=== PATIENT | female | born 1980 | race Caucasian/White ===

== ENCOUNTER 2016-09-28 06:29 | Day surgery (SDC) | payer OTHER, SELFPAY ==
[~2016-09-28 06:29] MED LIST: Lactated Ringers 1,000 ML IV SCH; Lidocaine 1%/Sod Bicarbonate in NS 8.4% 1 ML Syringe IV PRN; Sodium Chloride 0.9% 10 ML Syringe FLUSH PRN
[2016-09-28] MEDS ORDERED: Scopolamine 1.5 MG Transdermal Patch TOP ONE (07:00)
--- NOTE | 2016-09-28 07:08 | PCM.PREANE ---
Preanesthetic Assessment - Anesthesia/Transfusion/Family Hx Anesthesia History: No Prior Anesthesia (nausea) Family History of Anesthesia Reaction: No Transfusion History: No Prior Transfusion(s) - Review of Systems General: Malaise Pulmonary: No Symptoms Cardiovascular: No Symptoms Gastrointestinal: Abdominal pain, Nausea Neurological: No Symptoms Other: Reports: Easy Bleeding, Easy Bruising, Anxiety - Physical Assessment NPO Status Date: 09/27/16 NPO Status Time: 21:30 Pulse: 105 O2 Sat by Pulse Oximetry: 100 Respiratory Rate: 16 Blood Pressure: 128/87 Temperature: 37.4 C Vital Signs: Last Vital Signs Temp 37.4 C 09/28/16 06:30 Pulse 105 H 09/28/16 06:30 Resp 16 09/28/16 06:30 BP 128/87 09/28/16 06:30 Pulse Ox 100 09/28/16 06:30 Height: 1.6 m Weight: 54.431 kg ASA Class: 2 Mental Status: Alert & Oriented x3 Airway Class: Mallampati = 1 Dentition: Reports: Normal Dentition Thyro-Mental Finger Breadths: 3 Mouth Opening Finger Breadths: 3 ROM/Head Extension: Full Lungs: Clear to auscultation, Normal respiratory effort Cardiovascular: Regular Rate, Regular Rhythm - Lab Values: Laboratory Last Values WBC 6.78 K/mm3 (3.98-10.04) 09/26/16 15:38 RBC 4.68 M/mm3 (3.98-5.22) 09/26/16 15:38 Hgb 13.8 gm/L (11.2-15.7) 09/26/16 15:38 Hct 42.3 % (34.1-44.9) 09/26/16 15:38 MCV 90.4 fl (79.4-94.8) 09/26/16 15:38 MCH 29.5 pg (25.6-32.2) 09/26/16 15:38 MCHC 32.6 g/dl (32.2-35.5) 09/26/16 15:38 RDW Std Deviation 45.4 fL (36.4-46.3) 09/26/16 15:38 Plt Count 239 K/mm3 (182-369) 09/26/16 15:38 MPV 10.6 fl (9.4-12.3) 09/26/16 15:38 Neut % (Auto) 60.4 % (34.0-71.1) 09/26/16 15:38 Lymph % (Auto) 28.5 % (19.3-51.7) 09/26/16 15:38 [place] % (Auto) 8.3 % (4.7-12.5) 09/26/16 15:38 Eos % (Auto) 1.8 (0.7-5.8) 09/26/16 15:38 Baso % (Auto) 1.0 % (0.1-1.2) 09/26/16 15:38 Neut # (Auto) 4.10 K/mm3 (1.56-6.13) 09/26/16 15:38 Lymph # (Auto) 1.93 K/mm3 (1.18-3.74) 09/26/16 15:38 [place] # (Auto) 0.56 K/mm3 (0.24-0.36) H 09/26/16 15:38 Eos # (Auto) 0.12 K/mm3 (0.04-0.36) 09/26/16 15:38 Baso # (Auto) 0.07 K/mm3 (0.01-0.08) 09/26/16 15:38 Creatinine 0.9 mg/dL (0.55-1.02) 09/26/16 15:38 Est Cr Clr Drug Dosing 72.17 mL/min 09/26/16 15:38 Estimated GFR (MDRD) > 60 mL/min (>60) 09/26/16 15:38 Urine Color Yellow (Yellow) 09/26/16 15:38 Urine Appearance Slt cloudy (Clear) H 09/26/16 15:38 Urine pH 8.0 (5.0-8.0) 09/26/16 15:38 Ur Specific [place] 1.020 (1.005-1.030) 09/26/16 15:38 Urine Protein Trace (Negative) H 09/26/16 15:38 Urine Glucose (UA) Negative (Negative) 09/26/16 15:38 Urine Ketones Negative (Negative) 09/26/16 15:38 Urine Occult Blood Negative (Negative) 09/26/16 15:38 Urine Nitrite Negative (Negative) 09/26/16 15:38 Urine Bilirubin Negative (Negative) 09/26/16 15:38 Urine Urobilinogen 0.2 (0.2-1.0) 09/26/16 15:38 Ur Leukocyte Esterase Negative (Negative) 09/26/16 15:38 Urine HCG, Qual Negative (NEGATIVE) 09/26/16 15:38 - Allergies Allergies/Adverse Reactions: Allergies Allergy/AdvReac Type Severity Reaction Status Date / Time azithromycin Allergy rash, Verified 09/27/16 13:38 [From Zithromax [place]] diarrhea bupropion [From Wellbutrin] Allergy Headache Verified 09/27/16 13:38 gluten Allergy Nausea and Verified 09/27/16 13:38 Vomiting sunflower oil Allergy Stomach Verified 09/27/16 13:38 Upset Latex Allergy Rash Uncoded 09/27/16 13:38 - Anesthesia Plan Pre-Op Medication Ordered: None - Acknowledgements Anesthesia Type Planned: General Anesthesia Pt an Appropriate Candidate for the Planned Anesthesia: Yes Alternatives and Risks of Anesthesia Discussed w Pt/Guardian: Yes Pt/Guardian Understands and Agrees with Anesthesia Plan: Yes PreAnesthesia Questionnaire - Past Health History Medical/Surgical History: Denies Medical/Surgical History HEENT History: Reports: Allergic rhinitis, Sinusitis Cardiovascular History: Reports: None Respiratory History: Reports: Bronchitis, recurrent, Other (see below) Other Respiratory History: Breathing issues Gastrointestinal History: Reports: Chronic constipation, GERD, Inflammatory bowel disease, Other (see below) Other Gastrointestinal History: abdominal pain, nausea, vomiting, abdominal pain Genitourinary History: Reports: Other (see below) Other Genitourinary History: dysuria WRAPPER STRIPPER History: Reports: Other (see below) Other OB/BYN History: irregular menses, kash vaginits, amenorrhea, pelvic pain Musculoskeletal History: Reports: Back pain, chronic, Neck pain, chronic, Other (see below) Other Musculoskeletal History: cerviclagia, quadriceps tendon rupture Neurological History: Reports: Headaches, chronic, Vertigo, Other (see below) Other Neuro History: dizziness Psychiatric History: Reports: Anxiety, Depression, Other (see below) Other Psychiatric History: fatigue Endocrine/Metabolic History: Reports: None Hematologic History: Reports: Anemia, Iron deficiency Immunologic History: Reports: None Oncologic (Cancer) History: Reports: None Dermatologic History: Reports: Other (see below) Other Dermatologic History: rash - Past Surgical History Head Surgeries/Procedures: Reports: None - SUBSTANCE USE Smoking Status *Q: Never Smoker Second Hand Smoke Exposure: No Days Per Week of Alcohol Use: 0 Number of Drinks Per Day: 0 Total Drinks Per Week: 0 Recreational Drug Use History: No - HOME MEDS Home Medications: Home Meds Albuterol Sulfate [Proair Hfa] 2 puff IH Q4H PRN 01/29/16 [History] Cyclobenzaprine [Flexeril] 10 mg PO DAILY PRN 01/29/16 [History] Diclofenac Sodium [Voltaren] 75 mg PO ONETIME PRN 01/29/16 [History] Esomeprazole Magnesium [Nexium] 40 mg PO DAILY 01/29/16 [History] Misoprostol 200 mcg PO DAILY PRN 01/29/16 [History] Ondansetron HCl [Zofran] 4 mg PO DAILY 01/29/16 [History] Promethazine [Phenergan] 25 mg PO Q6H PRN 01/29/16 [History] Lactulose [Cephulac] 15 ml PO BID 09/27/16 [History] Montelukast [Singulair] 10 mg PO DAILY 09/27/16 [History] Norethindrone Acetate 5 mg PO DAILY 09/27/16 [History] Sertraline HCl [Sertraline HCl] 50 mg PO DAILY 09/27/16 [History] hydrOXYzine HCl [Hydroxyzine HCl] 25 mg PO BEDTIME 09/27/16 [History] - CURRENT (IN HOUSE) MEDS Current Meds: Current Medications Lactated Ringer's (Ringers, Lactated) 1,000 mls @ 125 mls/hr IV ASDIRECTED [facility] Stop: 09/28/16 23:00 Last Admin: 09/28/16 06:45 Dose: 125 mls/hr Lidocaine/Sodium Bicarbonate (Buffered Lidocaine 1% In Ns 8.4%) 0.25 ml IV ONETIME PRN PRN Reason: Prior to IV Start Stop: 09/28/16 18:00 Last Admin: 09/28/16 06:45 Dose: 0.25 ml Miscellaneous Information (Remove Patch) 1 ea TRDERM Q72H [facility] Stop: 10/01/16 07:16 Sodium Chloride (Saline Flush) 10 ml FLUSH ASDIRECTED PRN PRN Reason: Keep Vein Open Stop: 09/28/16 18:00 Discontinued Medications Scopolamine (Transderm-Scop) 1.5 mg TOP ONETIME ONE Stop: 09/28/16 07:01
[2016-09-28] MEDS ORDERED: LORazepam 2 MG/ML MDV IVPUSH ONE (07:11)
[2016-09-28] MEDS ORDERED: Midazolam 1 MG/ML 2 ML SDV ONE (07:23)
[2016-09-28] MEDS ORDERED: fentaNYL 250 MCG/5 ML SDV ONE (07:23)
[2016-09-28] MEDS ORDERED: Propofol 200 MG/20 ML SDV ONE (07:23)
[2016-09-28] MEDS ORDERED: Ondansetron 4 MG/2 ML SDV ONE (07:23)
[2016-09-28] MEDS ORDERED: Rocuronium 50 MG/5 ML Vial ONE (07:23)
[2016-09-28] MEDS ORDERED: Lidocaine 1% 4 ML ONE (07:24)
[2016-09-28] MEDS ORDERED: Dexamethasone 4 MG/ML SDV ONE (08:19)
[2016-09-28] MEDS ORDERED: ceFAZolin 1 GM Vial ONE (08:20)
[2016-09-28] MEDS ORDERED: Ketorolac 30 MG/ML SDV ONE (08:22)
[2016-09-28] MEDS ORDERED: Lactated Ringers 1,000 ML ONE (08:32)
[2016-09-28] MEDS ORDERED: Neostigmine Methylsulfate 1 MG/ML 5 ML Syringe ONE (08:35)
--- NOTE | 2016-09-28 08:35 | PCM.POSTAN ---
POST ANESTHESIA ASSESSMENT - MENTAL STATUS Mental Status: somnolent - VITAL SIGNS Pulse Rate: 122 SaO2: 98 Resp Rate: 14 Blood Pressure: 129/94 Temperature: 37.6 C - RESPIRATORY Respiratory Status: respiratory rate WNL, airway patent, O2 saturation stable - CARDIOVASCULAR CV Status: pulse rate WNL, blood pressure stable - GASTROINTESTINAL GI Status: no symptoms - PAIN Pain Score: 0 - POST OP HYDRATION Hydration Status: adequate & stable - OBSERVATIONS Free Text/Narrative:: no anesthesia complications noted
--- NOTE | 2016-09-28 08:40 | PCM.OPNOTE ---
- General Post-Op/Procedure Note Date of Surgery/Procedure: 09/28/16 Operative Procedure(s): Hysteroscopy, dilation and curettage, biopsy of anterior vaginal lesion Findings: Uterus sounded to 8/2 cm. It was posterior position and midline. No adnexal abnormalities noted on bimanual exam. The endometrial cavity shows some wispy endometrium. Tubal ostia were visualized. No significant polypoid structures were noted. D&C showed minimal tissue obtained. System for histologic evaluation. Anterior vagina in the anterior fornix there was a raised very soft lesion noted. It was somewhat friable. It was one and a half centimeters in length by os 1 cm in width. It was raised approximately 2-3 mm. It showed characteristics of HPV. Biopsies were obtained x4. Pre Op Diagnosis: Irregular uterine bleeding Post-Op Diagnosis: Same with anterior vaginal lesion Anesthesia Technique: General LMA Primary Surgeon: Sarath Redd Anesthesia Provider: Damir Gould Pathology: 1. Sadie creating superior to. Biopsy of anterior vaginal lesion Fluid Replacement, Intraop: 1,000 EBL in mLs: 3 Complications: None Condition: Good Free Text/Narrative:: Surgery duration: 11 minutes Procedure: The patient was taken to the operating room and placed in the supine position on the operating table. She received 2 g of Ancef preoperatively for infection prophylaxis and had sequential compression stockings in place for DVT prophylaxis. General anesthesia was established. After adequate anesthesia the patient was placed in a dorsal lithotomy position and prepped and draped in usual fashion. Hysteroscopy was performed. A weighted speculum was placed in the vagina. Cervix was visualized. Previous bimanual exam showed uterus to be posteriorly positioned and upper limits normal size. It was mid position. The cervix was grasped anteriorly with a single-tooth tenaculum and was dilated to accommodate a 5 mm rigid hysteroscope. A 30 Hysteroscope was then placed and normal saline was used to distend the uterine cavity. The endometrial cavity was found to have wispy endometrium. No significant polypoid structures were noted. The scope was removed, the cervix was dilated to accommodate a small curet and curettage was performed. Minimal tissue was obtained. This was sent as histologic specimen #1. Upon evaluation of the vagina, a lesion in the anterior fornix was noted measuring 1/2 cm in length by 1 cm in width and raise 2-3 mm. Multiple biopsies were obtained of this. 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 Hemostasis was confirmed at this point sponge and instrument counts were correct. Patient was returned to supine position and awakened from general anesthesia. She left the operating room in good condition.
[2016-09-28] MEDS ORDERED: Ondansetron 4 MG/2 ML SDV IVPUSH PRN (08:41)
[2016-09-28] MEDS ORDERED: fentaNYL 100 MCG/2 ML SDV IVPUSH PRN (08:45)
[2016-09-28 11:26] VITALS: BP 125/76
== END 2016-09-28 11:10 | disposition home or self-care (01) ==
LOC: JD.SDS 06:29
PROVIDERS: ATTEND Obstetrics & Gynecology
DX: N76.5 Ulceration of vagina (principal); J45.909 Unspecified asthma, uncomplicated; F32.9 Major depressive disorder, single episode, unspecified; F41.9 Anxiety disorder, unspecified; Z88.1 Allergy status to other antibiotic agents; Z91.018 Allergy to other foods; Z91.040 Latex allergy status; Z88.8 Allergy status to other drugs, medicaments and biological substances; K21.9 Gastro-esophageal reflux disease without esophagitis; Z79.899 Other long term (current) drug therapy; Z72.0 Tobacco use
CPT/HCPCS: 36415; 57421; 58558; 81003; 81025; 82565; 85025; 88305; A9270; J0690; J1100; J1885; J2060; J2250; J2405; J2710; J3010; J7120; 00952; J2704

== ENCOUNTER 2017-09-07 23:20 | Emergency (ER) | payer OTHER, SELFPAY ==
[2017-09-07 23:28] VITALS: BP 138/81
--- NOTE | 2017-09-08 00:50 | EDM.PDOC ---
ED HPI GENERAL MEDICAL PROBLEM - General Chief Complaint: Allergic Reaction Stated Complaint: POSS ALLERGIC REACTION Time Seen by Provider: 09/08/17 00:14 Source of Information: Reports: Patient, Family (Mother) History Limitations: Reports: No Limitations - History of Present Illness INITIAL COMMENTS - FREE TEXT/NARRATIVE: The patient states that she developed itchiness in her mouth while eating at a [employer] restaurant between 20:00 and 20:30 tonight. Initially, she thought that it was due to the spices and the food, however, she then developed whole-body pruritus and urticaria, dyspnea, difficulty swallowing, and chest tightness around 20:40. The patient took 25 mg of Benadryl, then was given an EpiPen injection per EMS around 22:00. She states that the epinephrine temporarily improved her breathing, although she again feels dyspneic, and believes that she is wheezing. The patient states that she is allergic to sunflowers, determined by a positive reaction on a skin test, however, she has not previously had an anaphylactic reaction to sunflowers, or anything else. Here in the ED, the patient is noted to be tachycardic, with an oxygen saturation of 100% on room air. The patient does not have a PCP. Chest Pain Score (Numeric/FACES): 8 - Related Data Allergies Allergy/AdvReac Type Severity Reaction Status Date / Time azithromycin Allergy rash, Verified 09/07/17 23:28 [From Zithromax Z-[place]] diarrhea bupropion [From Wellbutrin] Allergy Headache Verified 09/07/17 23:28 gluten Allergy Nausea and Verified 09/07/17 23:28 Vomiting sunflower oil Allergy Stomach Verified 09/07/17 23:28 Upset Latex Allergy Rash Uncoded 09/07/17 23:28 Home Meds: Home Meds Albuterol Sulfate [Proair Hfa] 2 puff IH Q4H PRN 01/29/16 [History] Cyclobenzaprine [Flexeril] 10 mg PO DAILY PRN 01/29/16 [History] Diclofenac Sodium [Voltaren] 75 mg PO ONETIME PRN 01/29/16 [History] Esomeprazole Magnesium [Nexium] 40 mg PO DAILY 01/29/16 [History] Ondansetron HCl [Zofran] 4 mg PO DAILY 01/29/16 [History] Promethazine [Phenergan] 25 mg PO Q6H PRN 01/29/16 [History] Lactulose [Cephulac] 15 ml PO BID 09/27/16 [History] Montelukast [Singulair] 10 mg PO DAILY 09/27/16 [History] Sertraline HCl 50 mg PO DAILY 09/27/16 [History] hydrOXYzine HCl [Hydroxyzine HCl] 25 mg PO BEDTIME 09/27/16 [History] Past Medical History HEENT History: Reports: Allergic Rhinitis Gastrointestinal History: Reports: GERD Psychiatric History: Reports: Anxiety, Depression Hematologic History: Reports: Anemia, Iron Deficiency - Past Surgical History HEENT Surgical History: Reports: Oral Surgery ([place] teeth extraction) Social & Family History - Family History Family Medical History: Noncontributory - Tobacco Use Smoking Status *Q: Never Smoker Second Hand Smoke Exposure: No - Caffeine Use Caffeine Use: Reports: None - Alcohol Use Alcohol Use History: No Days Per Week of Alcohol Use: 0 Number of Drinks Per Day: 0 Total Drinks Per Week: 0 - Recreational Drug Use Recreational Drug Use: No - Living Situation & Occupation Living situation: Reports: Single, with Family 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 ED EXAM GENERAL NO PERIP PULSE - Physical Exam Exam: See Below Exam Limited By: No Limitations General Appearance: Alert, WD/WN, No Apparent Distress, Anxious Eye Exam: Bilateral Eye: Normal Inspection Ears: Normal External Exam, Normal Canal, Hearing Grossly Normal, Normal TMs Nose: Normal Inspection, Normal Mucosa, No Blood Throat/Mouth: Normal Inspection, Normal Lips, Normal Teeth, Normal Gums, Normal Oropharynx (including no uvular swelling), Normal Voice, No Airway Compromise Head: Atraumatic, Normocephalic Neck: Normal Inspection, Supple, Non-Tender, Full Range of Motion. No: Lymphadenopathy (L), Lymphadenopathy (R) Respiratory/Chest: No Respiratory Distress, Lungs Clear, Normal Breath Sounds, No Accessory Muscle Use. No: Wheezing Cardiovascular: Normal Peripheral Pulses, Regular Rate, Rhythm, No Gallop, No JVD, No Murmur, No Rub GI/Abdominal: Normal Bowel Sounds, Soft, Non-Tender, No Organomegaly, No Distention, No Abnormal Bruit, No Mass (Female) Exam: Deferred Rectal (Female) Exam: Deferred Back Exam: Normal Inspection, Full Range of Motion, NT Extremities: Normal Inspection, Normal Range of Motion, No Pedal Edema, Normal Capillary Refill Neurological: Alert, Oriented, Normal Cognition, No Motor/Sensory Deficits Psychiatric: Normal Affect, Anxious Skin Exam: Warm, Dry, Intact, Normal Color, No Rash (no urticaria found on careful examination) Course - Vital Signs Last Recorded V/S: Last Vital Signs Temp 36.5 C 09/07/17 23:24 Pulse 115 H 09/07/17 23:24 Resp 18 09/07/17 23:24 BP 138/81 09/07/17 23:24 Pulse Ox 100 09/07/17 23:24 - Re-Assessments/Exams Free Text/Narrative Re-Assessment/Exam: 09/08/17 00:44 The patient believes that she is having an allergic reaction, however, I find no objective evidence of such. She does not have any uvular swelling or angioedema. There is no urticaria, including in intertriginous and heated areas , such as her back (lying against the plastic mattress), and her lungs are entirely clear to auscultation with no wheezing. All of this, despite not receiving any steroids. While it is true that she took Benadryl and was given an EpiPen injection, Benadryl only treats pruritus, not urticaria, and epinephrine treats bronchospasm, but also does not treat urticaria, and neither would reverse angioedema. The patient's oxygen saturation is 100% on room air, consistent with hyperventilation. I suspect that the patient is suffering from idiopathic urticaria, likely a stress reaction. The stress is probably concern of an allergic reaction to sunflower. When I asked about her allergy to sunflower, she has never actually had an allergic reaction to sunflower, rather, she had a positive skin test to it. Unfortunately, allergy skin testing is notoriously inaccurate, therefore current allergen testing includes blood tests looking for actual antibodies against allergens. A positive skin test to sunflower does not mean that the patient is allergic to sunflower, rather, it means that she might be allergic to sunflower. I offered the patient a sedative, such as Ativan or Valium, which she declined. The patient appears to be angry about my assessment, although the patient's mother tells me that the patient is always angry. Departure - Departure Time of Disposition: 00:50 Disposition: Home, Self-Care 01 Condition: Good Clinical Impression: Idiopathic urticaria - Discharge Information Referrals: PCP,None [Primary Care Provider] - Forms: ED Department Discharge Additional Instructions: You were seen in the emergency room for symptoms of itchiness in your mouth and whole body, shortness of breath, difficulty swallowing, and chest tightness. On physical examination, you were found to be saturating 100% on room air, consistent with hyperventilation. No oral mucosal or lip swelling was found. No hives were seen. Your lungs were clear, with no wheezing. In essence, no objective findings of an allergic reaction were found despite not being treated with medications that can reverse an allergic reaction = steroids. Based on your history and physical examination, you are MOST LIKELY suffering from a condition called idiopathic urticaria, also known as stress hives. This reaction can occur when people are feeling anxious or overly stressed. No treatment is necessary, although you were offered medication to help calm your nerves, which you declined. If any other problems, please do not hesitate to return to the ER.
== END 2017-09-08 01:00 | disposition home or self-care (01) ==
LOC: JD.ED 23:20
DX: L50.1 Idiopathic urticaria (principal); Z88.1 Allergy status to other antibiotic agents; Z91.040 Latex allergy status; Z79.899 Other long term (current) drug therapy
CPT/HCPCS: 99283

== ENCOUNTER 2019-03-30 14:34 | Emergency (ER) | payer OTHER ==
[2019-03-30 14:48] VITALS: BP 112/82; PULSE 80
[2019-03-30] MEDS ORDERED: Orphenadrine 100 MG Tab.ER PO ONE (15:16)
[2019-03-30] MEDS ORDERED: Ketorolac 30 MG/ML SDV IM ONE (15:16)
--- NOTE | 2019-03-30 15:25 | EDM.PDOC ---
ED HPI GENERAL MEDICAL PROBLEM - General Chief Complaint: Lower Extremity Injury/Pain Stated Complaint: R LEG AND FOOT INJURY Time Seen by Provider: 03/30/19 15:03 Source of Information: Reports: Patient, RN Notes Reviewed History Limitations: Reports: No Limitations - History of Present Illness INITIAL COMMENTS - FREE TEXT/NARRATIVE: Patient is a 38-year-old who presents to the ED for evaluation of a right leg injury. The patient states on Monday night, she was climbing down a ladder, that was new to her, then stepped off of the second rung, for which she thought she could reach the ground, and rod her right leg/heel into the ground pretty hard. She stated that there was some shooting pain immediately all the way up her leg. She notes that she clenched her teeth fairly hard, and was surprised that she did not bite her tongue due to this injury. The leg has been pretty bothersome ever since. She notes that most of the pain is in the ankle/lower leg, and then radiates up to the knee, and upper thigh. She states that with rest the ankle hurts, however with ambulation and putting any weight, that the knee hurts worse. She has not used any sort of Jimmie wrap, or Tylenol or Motrin for pain relief. She did not seek care for the injury when it happened. When asked if she thinks she could be , patient states she does not think she can be , she is on control, and her last menstrual period was years ago. Treatments CHILD CARE ASSOCIATE: Reports: Other (see below) Other Treatments CHILD CARE ASSOCIATE: none Lower Leg Pain Score (Numeric/FACES): 5 - Related Data Allergies Allergy/AdvReac Type Severity Reaction Status Date / Time azithromycin Allergy rash, Verified 03/30/19 15:21 [From Zithromax Z-[place]] diarrhea bupropion [From Wellbutrin] Allergy Headache Verified 03/30/19 15:21 gluten Allergy Nausea and Verified 03/30/19 15:21 Vomiting sunflower oil Allergy Stomach Verified 03/30/19 15:21 Upset Latex Allergy Rash Uncoded 03/30/19 15:21 Home Meds: Home Meds Albuterol Sulfate [Proair Hfa] 2 puff IH Q4H PRN 01/29/16 [History] Cyclobenzaprine [Flexeril] 10 mg PO DAILY PRN 01/29/16 [History] Ondansetron HCl [Zofran] 4 mg PO DAILY PRN 01/29/16 [History] Promethazine [Phenergan] 25 mg PO Q6H PRN 01/29/16 [History] Lactulose [Cephulac] 15 ml PO BID 09/27/16 [History] Montelukast [Singulair] 10 mg PO DAILY 09/27/16 [History] hydrOXYzine HCl [Hydroxyzine HCl] 25 mg PO BEDTIME 09/27/16 [History] Pantoprazole Sodium [Protonix] 40 mg PO DAILY 03/30/19 [History] Past Medical History - Past Health History Medical/Surgical History: Denies Medical/Surgical History HEENT History: Reports: Allergic Rhinitis Cardiovascular History: Reports: None Respiratory History: Reports: Bronchitis, Recurrent, Other (See Below) Other Respiratory History: Breathing issues Gastrointestinal History: Reports: GERD Other Gastrointestinal History: abdominal pain, nausea, vomiting, abdominal pain Genitourinary History: Reports: Other (See Below) Other Genitourinary History: dysuria 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: Other (See Below) Other GLUE JOINTER OPERATOR History: irregular menses, kash vaginits, amenorrhea, pelvic pain Musculoskeletal History: Reports: Back Pain, Chronic, Neck Pain, Chronic, Other (See Below) Other Musculoskeletal History: cerviclagia, quadriceps tendon rupture Neurological History: Reports: Headaches, Chronic, Vertigo, Other (See Below) Other Neuro History: dizziness Psychiatric History: Reports: Anxiety, Depression Other Psychiatric History: fatigue Endocrine/Metabolic History: Reports: None Hematologic History: Reports: Anemia, Iron Deficiency Immunologic History: Reports: None Oncologic (Cancer) History: Reports: None Dermatologic History: Reports: Other (See Below) Other Dermatologic History: rash - Past Surgical History Head Surgeries/Procedures: Reports: None HEENT Surgical History: Reports: Oral Surgery Social & Family History - Family History Family Medical History: Noncontributory - Tobacco Use Smoking Status *Q: Never Smoker - Caffeine Use Caffeine Use: Reports: Coffee, Soda, Tea - Recreational Drug Use Recreational Drug Use: No - Living Situation & Occupation Living situation: Reports: Single, with Family 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) Review of Systems - Review of Systems Review Of Systems: See Below Constitutional: Reports: No Symptoms Eyes: Reports: No Symptoms Ears: Reports: No Symptoms Nose: Reports: No Symptoms Mouth/Throat: Reports: No Symptoms Respiratory: Reports: No Symptoms Cardiovascular: Reports: No Symptoms GI/Abdominal: Reports: No Symptoms Genitourinary: Reports: No Symptoms Musculoskeletal: Reports: Leg Pain (R leg, ankle to upper thigh), Muscle Pain ( R leg laterally) Skin: Reports: No Symptoms Neurological: Denies: Numbness, Tingling, Difficulty Walking Psychiatric: Reports: No Symptoms ED EXAM, GENERAL - Physical Exam Exam: See Below Exam Limited By: No Limitations General Appearance: Alert, WD/WN, No Apparent Distress Respiratory/Chest: No Respiratory Distress, Lungs Clear, Normal Breath Sounds, No Accessory Muscle Use, Chest Non-Tender Cardiovascular: Normal Peripheral Pulses, Regular Rate, Rhythm, No Murmur Peripheral Pulses: 3+: Dorsalis Pedis (L), Dorsalis Pedis (R) Extremities: Normal Inspection, Normal Capillary Refill, Leg Pain (mild tenderness to palpation of R lateral leg from ankle to thigh.), Limited Range of Motion (of right leg at knee d/t pain that radiates with rom), Other (Mild amount of swelling above the lateral right ankle, as compared to the left leg.) . No: Pallor, Redness Neurological: Alert, Oriented, Normal Cognition, No Motor/Sensory Deficits Psychiatric: Normal Affect, Normal Mood Skin Exam: Warm, Dry, Intact, Normal Color, No Rash Course - Vital Signs Last Recorded V/S: Last Vital Signs Temp 98.0 F 03/30/19 14:47 Pulse 80 03/30/19 14:47 Resp 20 03/30/19 14:47 BP 112/82 03/30/19 14:47 Pulse Ox 100 03/30/19 14:47 - Orders/Labs/Meds Orders: Active Orders 24 hr Category Date Time Status Ankle Min 3V Rt [CR] Stat Exams 03/30/19 15:14 Taken Knee Min 4V Rt [CR] Stat Exams 03/30/19 15:14 Taken Meds: Medications Discontinued Medications Generic Name Dose Route Start Last Admin Trade Name Freq PRN Reason Stop Dose Admin Ketorolac Tromethamine 30 mg 03/30/19 15:16 03/30/19 15:22 Toradol IM 03/30/19 15:17 30 mg ONETIME ONE Administration Orphenadrine Citrate 100 mg 03/30/19 15:16 03/30/19 15:31 Norflex PO 03/30/19 15:17 Not Given ONETIME ONE - Re-Assessments/Exams Free Text/Narrative Re-Assessment/Exam: 03/30/19 15:27 Patient presents to the ED for evaluation of a right leg injury. I did order ankle x-ray, and knee x-ray, for initial imaging, and 30 mg IM Toradol, and 100 mg PO Norflex for initial management. Due to the tenderness along the lateral portion of the leg, suspicious for more of soft tissue or muscle injury. She has been walking on the extremity for the past 4 days. 03/30/19 16:55 X-rays are done, and demonstrate no sign of bony abnormality or fracture noted in the ankle or knee x-ray taken today. Will discharge patient home with general recommendations, and have her follow-up with her primary care provider sometime this week if the pain is not getting much better. Departure - Departure Time of Disposition: 16:56 Disposition: Home, Self-Care 01 Condition: Fair Clinical Impression: Right leg pain - Discharge Information *PRESCRIPTION DRUG MONITORING PROGRAM REVIEWED*: No *COPY OF PRESCRIPTION DRUG MONITORING REPORT IN PATIENT JACINTO: No Instructions: Musculoskeletal Pain Referrals: PCP,None [Primary Care Provider] - Forms: ED Department Discharge Additional Instructions: You have been evaluated in the ED for your right leg injury. Your x-ray demonstrated no acute fracture or bony abnormality of the R ankle or R knee. Please use ice as tolerated to the affected area. Please try to elevate the affected areas to relieve swelling. You may take Tylenol 500 mg or ibuprofen 600mg q6 hrs for pain relief. Please do so until you have a tolerable level of pain with activity. Do not exceed 4000mg Tylenol or 3200mg ibuprofen in a 24 hour time period. You may try to Jimmie wrap the right ankle to provide further swelling relief also you may Jimmie wrap the knee to provide further swelling relief. If your pain is not getting much better in a few days' time, recommend that you follow up with with a family practice provider for reevaluation, our [facility] clinic number is [phone]. Any family practice provider will be able to provide you with the services. Please return to ED if your symptoms should change or worsen. - My Orders Last 24 Hours: My Active Orders 03/30/19 15:14 Ankle Min 3V Rt [CR] Stat Knee Min 4V Rt [CR] Stat - Assessment/Plan Last 24 Hours: My Active Orders 03/30/19 15:14 Ankle Min 3V Rt [CR] Stat Knee Min 4V Rt [CR] Stat
--- NOTE | 2019-03-31 16:15 | CR ---
Right knee: Four views of the right knee were obtained. Comparison: No prior knee exam. Medial and lateral joint compartments are maintained in height. No joint effusion is seen. No fracture or other bony abnormality is seen. Impression: 1. No abnormality is appreciated on right knee exam. Diagnostic code #1
--- NOTE | 2019-03-31 16:15 | CR ---
Right ankle: Four views of the right ankle were obtained. Comparison: No previous ankle study. Small plantar spur is noted. Ankle mortise is symmetric. No fracture, dislocation or other bony abnormality is seen. Impression: 1. Plantar spur. 2. Right ankle study is otherwise unremarkable. Diagnostic code #2
== END 2019-03-30 17:10 | disposition home or self-care (01) ==
LOC: JD.ED 14:34
DX: M79.604 Pain in right leg (principal); K21.9 Gastro-esophageal reflux disease without esophagitis; Z88.1 Allergy status to other antibiotic agents; Z88.8 Allergy status to other drugs, medicaments and biological substances; Z91.018 Allergy to other foods; Z91.040 Latex allergy status; Z79.899 Other long term (current) drug therapy; W11.XXXA Fall on and from ladder, initial encounter; Y93.39 Activity, other involving climbing, rappelling and jumping off; Y92.89 Other specified places as the place of occurrence of the external cause; Y99.0 Civilian activity done for income or pay
CPT/HCPCS: 73564; 73610; 96372; 99283; J1885

== ENCOUNTER 2021-08-13 07:03 | Emergency (ER) | payer OTHER ==
[2021-08-13] MEDS ORDERED: Sodium Chloride 0.9% 10 ML Syringe FLUSH PRN ×2 (07:46→10:22)
[2021-08-13] MEDS ORDERED: Ondansetron 4 MG/2 ML SDV IVPUSH ONE ×2 (07:46→12:31)
[2021-08-13] MEDS ORDERED: Sodium Chloride 0.9% 1,000 ML IV SCH (08:00)
[2021-08-13] MEDS ORDERED: fentaNYL 100 MCG/2 ML SDV IVPUSH ONE ×2 (08:34→09:00)
[2021-08-13] MEDS: Potassium Chloride 10 MEQ in Premix Bag 1 BAG IV SCH ×2 (08:40→09:37)
[2021-08-13] MEDS ORDERED: Diatrizoate Meglumine/Diatrizoate Sodium 37% 120 ML Bottle PO ONE (10:22)
[2021-08-13] MEDS ORDERED: Iopamidol 612 MG/ML 100 ML Bottle IVPUSH ONE (10:22)
[2021-08-13] MEDS ORDERED: Acetaminophen/HYDROcodone 325-5 MG Tab PO ONE (12:32)
[2021-08-13] MEDS ORDERED: Acetaminophen/HYDROcodone 108-2.5 MG/5 ML Soln 15 ML UD Cup PO ONE (12:43)
[2021-08-13] MEDS ORDERED: Potassium Chloride 20 MEQ Tab.ER PO ONE (12:44)
[2021-08-13 13:01] VITALS: BP 118/82; PULSE 78
== END 2021-08-13 13:07 | disposition home or self-care (01) ==
LOC: JD.ED 07:03
DX: R10.31 Right lower quadrant pain (principal); K21.9 Gastro-esophageal reflux disease without esophagitis; Z88.1 Allergy status to other antibiotic agents; Z91.018 Allergy to other foods; Z91.048 Other nonmedicinal substance allergy status; Z91.040 Latex allergy status; Z79.899 Other long term (current) drug therapy
CPT/HCPCS: 36415; 74177; 80053; 81001; 83690; 83735; 84702; 85025; 86140; 96365; 96366; 96375; 96376; 99284; A9270; J2405; J3010; J3480; J7030; Q9963; Q9967; 99285

== ENCOUNTER 2021-09-13 15:29 | Day surgery (SDC) | payer OTHER ==
[~2021-09-13 15:29] MED LIST changes: +Bupivacaine 0.5%/EPINEPHrine 1:200,000 50 ML MDV ONE; +Dexamethasone 4 MG/ML 5 ML MDV ONE; +Ketorolac 30 MG/ML SDV ONE; -Lactated Ringers 1,000 ML IV SCH; +Lidocaine 1% 4 ML ONE; +Lidocaine 1% with EPINEPHrine 1:100,000 20 ML MDV ONE; -Lidocaine 1%/Sod Bicarbonate in NS 8.4% 1 ML Syringe IV PRN; +Midazolam 1 MG/ML 2 ML SDV ONE; +Ondansetron 4 MG/2 ML SDV ONE; +Propofol 200 MG/20 ML SDV ONE; +Rocuronium 50 MG/5 ML Vial ONE; -Sodium Chloride 0.9% 10 ML Syringe FLUSH PRN; +ceFAZolin 1 GM Vial ONE; +fentaNYL 250 MCG/5 ML SDV ONE
[2021-09-13] MEDS ORDERED: Scopolamine 1.5 MG Transdermal Patch TOP ONE (15:30)
[2021-09-13] MEDS: Gabapentin 300 MG Cap PO ONE ×2 (15:44→18:01)
[2021-09-13] MEDS: Acetaminophen 325 MG Tab PO ONE ×2 (15:44→18:01)
[2021-09-13] MEDS ORDERED: Lactated Ringers 1,000 ML ONE (15:47)
[2021-09-13] MEDS ORDERED: Propofol 200 MG/20 ML SDV ONE (16:02)
[2021-09-13] MEDS ORDERED: Sodium Chloride 0.9% 10 ML Syringe FLUSH PRN (16:04)
[2021-09-13] MEDS ORDERED: Lidocaine 1%/Sod Bicarbonate in NS 8.4% 1 ML Syringe IDERM PRN (16:04)
[2021-09-13] MEDS ORDERED: Lactated Ringers 1,000 ML IV SCH (16:15)
[2021-09-13] MEDS ORDERED: Ondansetron 4 MG/2 ML SDV IVPUSH PRN (17:04)
[2021-09-13] MEDS ORDERED: fentaNYL 100 MCG/2 ML SDV IVPUSH PRN (17:04)
[2021-09-13] MEDS: HYDROmorphone 0.5 MG/0.5 ML Syringe IVPUSH PRN ×2 (18:00→18:16)
[2021-09-13 20:52] VITALS: BP 139/78; PULSE 110
[2021-09-13] MEDS ORDERED: Sodium Chloride 0.9% 10 ML Syringe FLUSH SCH (21:00)
== END 2021-09-13 21:00 | disposition home or self-care (01) ==
LOC: JD.SDS 15:29
PROVIDERS: ATTEND Surgery
DX: K81.1 Chronic cholecystitis (principal); J45.909 Unspecified asthma, uncomplicated; F41.9 Anxiety disorder, unspecified; F32.A Depression, unspecified; Z88.1 Allergy status to other antibiotic agents; Z91.040 Latex allergy status; Z88.8 Allergy status to other drugs, medicaments and biological substances
CPT/HCPCS: 47562; A9270; J0690; J1100; J1170; J1885; J2250; J2405; J2704; J2710; J3010; J3490; J7120; 00790; 99140

== ENCOUNTER 2021-12-07 08:03 | Day surgery (SDC) | payer OTHER ==
[2021-12-07] MEDS: Lactated Ringers 1,000 ML IV SCH ×2 (07:55→12:55)
[~2021-12-07 08:03] MED LIST changes: -Bupivacaine 0.5%/EPINEPHrine 1:200,000 50 ML MDV ONE; -Lidocaine 1% with EPINEPHrine 1:100,000 20 ML MDV ONE; +Lidocaine 1%/Sod Bicarbonate in NS 8.4% 1 ML Syringe IDERM PRN; +Neostigmine Methylsulfate 10 MG/10 ML MDV ONE; +Sodium Chloride 0.9% 10 ML Syringe FLUSH PRN; +Sodium Chloride 0.9% 10 ML Syringe FLUSH SCH; -ceFAZolin 1 GM Vial ONE; +ceFAZolin 2 GM Vial ONE
[2021-12-07] MEDS ORDERED: Lidocaine 1% with EPINEPHrine 1:100,000 20 ML MDV ONE (08:44)
[2021-12-07] MEDS ORDERED: Bupivacaine 0.5% 30 ML SDV ONE (08:44)
[2021-12-07] MEDS ORDERED: Sodium Chloride 0.9% 50 ML SDV ONE (09:33)
[2021-12-07] MEDS ORDERED: Lactated Ringers 1,000 ML ONE (10:08)
[2021-12-07] MEDS ORDERED: Ketamine 500 mg/10 ML MDV ONE (10:11)
[2021-12-07] MEDS ORDERED: HYDROmorphone 0.5 MG/0.5 ML Syringe IVPUSH PRN (10:19)
[2021-12-07] MEDS ORDERED: Ondansetron 4 MG/2 ML SDV IVPUSH PRN ×2 (10:19→10:44)
[2021-12-07] MEDS ORDERED: fentaNYL 100 MCG/2 ML SDV IVPUSH PRN (10:19)
[2021-12-07] MEDS ORDERED: Acetaminophen/oxyCODONE 325-5 MG Tab PO PRN (10:44)
[2021-12-07] MEDS ORDERED: Famotidine 20 MG/2 ML SDV IVPUSH ONE (13:08)
[2021-12-07] MEDS ORDERED: Citric Acid/Sodium Citrate Solution 30 ML Cup PO ONE (13:15)
[2021-12-07] MEDS ORDERED: Ibuprofen 600 MG Tab PO PRN (13:30)
[2021-12-07 17:01] VITALS: BP 109/66; PULSE 92
== END 2021-12-07 14:38 | disposition home or self-care (01) ==
LOC: JD.SDS 08:03
PROVIDERS: ATTEND Obstetrics & Gynecology
DX: N87.9 Dysplasia of cervix uteri, unspecified (principal); N88.8 Other specified noninflammatory disorders of cervix uteri; N72 Inflammatory disease of cervix uteri; N80.0 Endometriosis of uterus; K21.9 Gastro-esophageal reflux disease without esophagitis; G43.909 Migraine, unspecified, not intractable, without status migrainosus; D64.9 Anemia, unspecified; J45.909 Unspecified asthma, uncomplicated; F41.9 Anxiety disorder, unspecified; F32.A Depression, unspecified; Z79.899 Other long term (current) drug therapy; Z88.1 Allergy status to other antibiotic agents; Z88.8 Allergy status to other drugs, medicaments and biological substances; Z91.040 Latex allergy status; Z91.018 Allergy to other foods
CPT/HCPCS: 36415; 58262; 81003; 81025; 82565; 85025; 86850; 86900; 86901; 87641; A9270; J0690; J1100; J1885; J2250; J2405; J2704; J2710; J3010; J3490; J7120

== ENCOUNTER 2023-10-19 12:08 | Emergency (ER) | payer MEDICAID ==
[2023-10-19 12:26] VITALS: BP 121/86; PULSE 76
[2023-10-19 13:38] LABS: BASOPHILS ABSOLUTE AUTO 0.1 K/mm3 (0.0-0.2); BASOPHILS PERCENT AUTO 0.3 % (0.0-1.0); HEMATOCRIT 36.9 % (37.0-47.0); HEMOGLOBIN 12.3 gm/dl (12.0-16.0); IMMATURE GRAN ABSOLUTE AUTO 0.63 K/mm3 (0.00-0.05); IMMATURE GRAN PERCENT AUTO 3.6 % (0.0-0.4); LYMPHOCYTES ABSOLUTE AUTO 0.8 K/mm3 (1.0-4.8); LYMPHOCYTES PERCENT AUTO 4.8 % (24.0-44.0); MEAN CORPUSCULAR HEMOGLOBIN 28.2 pg (28.0-32.0); MEAN CORPUSCULAR HGB CONC 33.3 g/dl (32.0-36.0); MEAN CORPUSCULAR VOLUME 84.6 fl (83.0-99.0); MEAN PLATELET VOLUME 10.1 fl (9.4-12.3); MONOCYTES ABSOLUTE AUTO 0.5 K/mm3 (0.0-0.8); MONOCYTES PERCENT AUTO 2.6 % (0.0-8.0); NEUTROPHILS ABSOLUTE AUTO 15.6 K/mm3 (1.8-7.7); NEUTROPHILS PERCENT AUTO 88.7 % (41.0-71.0); PLATELET COUNT,PLT 238 K/mm3 (150-400); RED BLOOD CELL COUNT 4.36 M/mm3 (4.10-5.30); WHITE BLOOD CELL COUNT,WBC 17.59 K/mm3 (3.9-11.3)
[2023-10-19 14:02] LABS: A/G RATIO 1.1 (1-2); ALBUMIN 3.1 g/dl (3.4-5.0); ANION GAP 13.3 (5-15); BILIRUBIN TOTAL 0.5 mg/dL (0.2-1.0); BUN/CREATININE RATIO 38.6 (14-18); C-REACTIVE PROTEIN 0.05 mg/dL (<0.30); CALCIUM 8.6 mg/dL (8.5-10.1); CREATININE 0.7 mg/dL (0.55-1.02); EST CRCL DRUG DOSING (CG) 82.8 mL/min; POTASSIUM,K 4.3 mEq/L (3.5-5.1); PROTEIN TOTAL,TP 5.9 g/dl (6.4-8.2)
[2023-10-19 15:52] LABS: SLIDE REVIEW ABNORMAL SMEAR
== END 2023-10-19 14:32 | disposition left against medical advice (07) ==
LOC: JD.ED 12:08
DX: Z48.3 Aftercare following surgery for neoplasm (principal); K21.9 Gastro-esophageal reflux disease without esophagitis; Z88.1 Allergy status to other antibiotic agents; Z91.040 Latex allergy status; Z88.8 Allergy status to other drugs, medicaments and biological substances; Z91.018 Allergy to other foods; Z86.16 Personal history of COVID-19; Z90.49 Acquired absence of other specified parts of digestive tract
CPT/HCPCS: 36415; 80053; 83605; 85025; 85730; 86140; 87040; 99283